=== PATIENT | male | born 1940 | race Caucasian/White ===

== ENCOUNTER → 2018-05-29 | Outpatient (CLI) | payer OTHER, BC ==
[~2018-05-29] MED LIST: ASPRIN; Azulfidine PO; Calan PO; Calan SR,Covera HS,I PO; Folvite PO; HYDROCHLOROTHIA25 MG PO; Levothroid,Synthroid PO; MARTINIC1 EACH PO; METAMUCIL CAPSU1 CAP; PRAVASTATIN; PRAVASTATIN SOD40 MG PO; QUESTRAN4 GM/PACKE PO; TRAMADOL HCL50 MG PO; Tylenol Extra Streng PO; Vicodin,Lortab 5/500 PO; Zestoretic,Prinzide PO; Zocor PO; [UNRECOGNIZED DRUG - OTHER] OP
== END | disposition home or self-care (01) ==
LOC: NUC 08:40
DX: M47.892 Other spondylosis, cervical region (principal); M19.012 Primary osteoarthritis, left shoulder; M19.011 Primary osteoarthritis, right shoulder; M47.895 Other spondylosis, thoracolumbar region; M16.12 Unilateral primary osteoarthritis, left hip; M19.072 Primary osteoarthritis, left ankle and foot; M19.071 Primary osteoarthritis, right ankle and foot; M25.562 Pain in left knee
CPT/HCPCS: 78315; A9503